=== PATIENT | female | born 1950 | race Caucasian/White ===

== ENCOUNTER → 2016-09-07 | Outpatient (CLI) | payer BC ==
--- NOTE | 2016-09-07 12:00 | DI ---
LEFT KNEE, 09/07/2016 10:30 AM: Clinical History: Acute left knee pain. Previous Exam: None at this facility. 4 views are submitted. The AP and tunnel projections are weight bearing views. There is no acute soft tissue, osseous, or joint abnormality. There is moderate narrowing of the medial compartment. Mild l ateral subluxation of the patella is noted. Reading: Moderate degenerative changes noted in the medial compartment of the left knee.
--- NOTE | 2016-09-07 16:42 | DI ---
MRI LEFT KNEE SCAN, 09/07/2016 1:37 PM: Clinical History: "Locking" of the left knee. Previous Exam: None at this facility. Technique: Axial, coronal, and sagittal PD and fat saturated PD; axial T1 weighted. There is no soft tissue edema. A moderate joint effusion is present with synovitis in the suprapatell ar bursa. No abnormal bone signal pattern is present. There is a chronic partial tear of the posterio r half of the medial collateral ligament and the posterior half of the medial patellofemoral ligament and the medial retinaculum. The patella is mildly subluxed laterally. There is a complete tear of th e medial meniscofemoral ligament with a chronic tear of the meniscotibial ligament. A mild chronic pa rtial tear is present in the anterior aspect of the anterior cruciate ligament near the attachment to the tibial spines. The posterior cruciate ligament and lateral collateral ligament are normal. There is a large radial tear in the posterior horn of the medial meniscus, and the lateral meniscus is int act. The quadriceps and popliteus tendons and the tendon of the lateral head of the gastrocnemius mus wilfrid are normal. There is a partial tear of the tendon of the medial head of the gastrocnemius muscle with tendinosis of the proximal portion of the patellar tendon. The articular surfaces of the medial and lateral compartments are normal. 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 The remaining articular surfaces of the patellofemoral joint are intact. Readin. Moderate joint effusion with synovitis in the suprapatellar bursa. There is a deep radial tear of the posterior horn of the medial meniscus with a complete tear of the medial meniscofemoral ligament . Chronic partial tears are evident in the posterior half of the medial patellofemoral ligament and t he medial retinaculum with associated mild lateral subluxation of the patella. A chronic partial tear is present in the posterior half of the MCL, the distal portion of the ACL, the meniscotibial ligame nt, and in the tendon of the medial head of the gastrocnemius muscle. There is tendinosis in the prox imal portion of the patellar tendon. 2. The LCL, PCL, quadriceps and popliteus tendons, and the articular surfaces of the medial and late ral compartments are normal.
== END ==
LOC: ORTHO 11:24
PROVIDERS: ATTEND Physician Assistant
DX: M25.562 Pain in left knee (principal); M25.462 Effusion, left knee; S83.232A Complex tear of medial meniscus, current injury, left knee, initial encounter; M22.42 Chondromalacia patellae, left knee
CPT/HCPCS: 73564; 73721; G0463

== ENCOUNTER 2016-09-26 11:45 | Day surgery (SDC) | payer BC ==
[~2016-09-26 11:45] MED LIST: LIDOCAINE W/ SODIUM BICARB 0.5 ML SYR ONE; Lactated Ringers 1,000 ML PRIMARY IV ONE; ceFAZolin Inj 2gm (Premix) 50 ML IV ONE
[2016-09-26] MEDS ORDERED: EPINEPHrine Inj (1:1,000) 30mg/30ml vial ONE (12:08)
[2016-09-26] MEDS ORDERED: Ropivacaine 0.2% VIAL 20 ML ONE (12:08)
[2016-09-26] MEDS ORDERED: fentaNYL Inj 250 MCG/5 ML VIAL ONE (12:30)
[2016-09-26] MEDS ORDERED: MIDAZOLAM 5 MG/1 ML ONE (12:30)
[2016-09-26] MEDS ORDERED: LIDOCAINE MPF 2% - 5 ML (20 MG/1 ML) ONE (12:30)
[2016-09-26] MEDS ORDERED: KETOROLAC 30 MG/1 ML VIAL ONE (12:31)
[2016-09-26] MEDS ORDERED: DEXAMETHASONE SOD PHOSPHATE 4 MG/1 ML VIAL ONE (12:31)
[2016-09-26] MEDS ORDERED: ONDANSETRON 4 MG/2 ML VIAL ONE (12:31)
[2016-09-26] MEDS ORDERED: KETAMINE 100 MG/1 ML - 5 ML ONE (12:46)
[2016-09-26] MEDS ORDERED: ePHEDrine Inj 50 MG/ML AMP ONE (12:51)
[2016-09-26] MEDS ORDERED: HYDROmorphone 2 MG/1 ML ONE (13:02)
[2016-09-26] MEDS ORDERED: LIDOCAINE HCL 1%/EPI 1:100,000 - 20 ML VIAL ONE (13:07)
[2016-09-26] MEDS ORDERED: Lactated Ringers 1,000 ML PRIMARY IV ONE (13:21)
[2016-09-26] MEDS ORDERED: BETAMET ACET/BETAMET NA PH 6 MG/1 ML - 5 ML ONE (13:25)
[2016-09-26] MEDS ORDERED: diphenhydrAMINE 25 MG CAPSULE PO PRN (13:44)
[2016-09-26] MEDS ORDERED: Ondansetron ODT Tab 8 MG TAB PO PRN (13:44)
[2016-09-26] MEDS ORDERED: BISACODYL 5 MG TABLET PO PRN (13:44)
[2016-09-26] MEDS ORDERED: MAG HYDROX/AL HYDROX/SIMETH 30 ML SUSP PO PRN (13:44)
[2016-09-26] MEDS ORDERED: NORMAL SALINE 10 ML SYRINGE FLUSH IVP PRN (13:44)
[2016-09-26] MEDS ORDERED: MORPHINE SULFATE 2 MG/1 ML IVP PRN (13:44)
[2016-09-26] MEDS ORDERED: ACETAMINOPHEN 325 MG TABLET PO PRN (13:44)
[2016-09-26] MEDS ORDERED: CALCIUM CARBONATE 500 MG (TUMS) CHEWABLE TABLET PO PRN (13:44)
[2016-09-26] MEDS ORDERED: HYDROcodone-APAP 7.5 MG-325 MG TABLET PO PRN (13:44)
[2016-09-26] MEDS ORDERED: IBUPROFEN 400 MG TABLET PO PRN (13:44)
[2016-09-26] MEDS ORDERED: Prochlorperazine Tab 10 MG TAB PO PRN (13:44)
[2016-09-26] MEDS ORDERED: BISACODYL 10 MG SUPPOSITORY RECTAL PRN (13:44)
[2016-09-26] MEDS ORDERED: ONDANSETRON 4 MG/2 ML VIAL IVP PRN (13:44)
[2016-09-26] MEDS ORDERED: Lactated Ringers 1,000 ML PRIMARY IV SCH (13:45)
[2016-09-26] MEDS ORDERED: HYDROcodone-APAP 7.5 MG-325 MG TABLET PO ONE (14:07)
[2016-09-26 14:12] VITALS: RESP 16
[2016-09-26] MEDS ORDERED: Ondansetron ODT Tab 8 MG TAB PO ONE (15:35)
[2016-09-26 16:27] VITALS: TEMP 97.6
--- NOTE | 2016-09-27 16:56 | OPS CRUTCH ---
Diagnosis : Left Knee Scope Referral Reason: Knee Cryo Cuff O: The patient was issued a Cryo-Cuff and instructed in its proper use and care. P: No further therapy is indicated at this time. MTDD
== END 2016-09-26 16:10 | disposition home or self-care (01) ==
LOC: SDSC 11:45
PROVIDERS: ATTEND Orthopaedic Surgery
DX: S83.232A Complex tear of medial meniscus, current injury, left knee, initial encounter (principal); M22.42 Chondromalacia patellae, left knee
CPT/HCPCS: 29876; 29881; J0171; J0690; J0702; J1885; J2704; J2795; J3010; Q0162; J1100; J1170; J2001; J2250; J2405; J7120